=== PATIENT | male | born 1970 | race Two or more races ===

== ENCOUNTER 2022-05-31 13:32 | Emergency (ER) | payer OTHER ==
[~2022-05-31] VITALS: Ht 180.3 cm; Wt 102.1 kg
== END 2022-05-31 17:01 | disposition home or self-care (01) ==
LOC: ER 13:32
DX: K21.9 Gastro-esophageal reflux disease without esophagitis (principal)

== ENCOUNTER 2025-05-15 09:54 | Emergency (ER) | payer OTHER ==
[~2025-05-15] VITALS: Ht 177.8 cm; Wt 84.4 kg
[2025-05-15] MEDS ORDERED: DEXAMETHASONE SODIUM PHOSPHATE 4 MG/ML VIAL IM ONE (11:00)
[2025-05-15] MEDS ORDERED: KETOROLAC TROMETHAMINE 60 MG VIAL IM ONE ×2 (11:00→11:19)
[2025-05-15] MEDS ORDERED: DEXAMETHASONE SODIUM PHOSPHATE 4 MG/ML VIAL ONE (11:19)
== END 2025-05-15 11:43 | disposition home or self-care (01) ==
LOC: ER 09:54
DX: M79.652 Pain in left thigh (principal); I10 Essential (primary) hypertension; E11.9 Type 2 diabetes mellitus without complications